=== PATIENT | female | born 1975 | race Caucasian/White ===

== ENCOUNTER 2018-12-17 15:23 | Emergency (ER) | payer OTHER ==
[~2018-12-17] VITALS: Ht 182.9 cm; Wt 86.4 kg
[2018-12-17 16:13] LABS: EOS % 0.1 % (1.0-5.0); HEMATOCRIT 39.1 % (37.0-47.0); LYMPH# 1.6 (1.50-4.00); MEAN CELL VOLUME 91 fl (78-100); MEAN CORPUSCULAR HEMOGLOBIN 30 pg (27-31); MEAN CORPUSCULAR HGB CONC 33 g/dL (33-37); MEAN PLATELET VOLUME 9.4 fl (7.4-10.4); MONO # 0.5 (0.20-0.80); NEU # 7.3 (1.40-6.50); PLATELET COUNT 305 K/mm3 (130-400); RED BLOOD COUNT 4.29 M/mm3 (4.10-5.30); RED CELL DISTRIBUTION WIDTH 12.5 % (11.5-14.5); WHITE BLOOD COUNT 9.5 K/mm3 (4.8-10.8)
[2018-12-17 16:18] LABS: ALBUMIN 4.6 g/dL (3.5-5.0)
[2018-12-17 16:19] LABS: CALCIUM 9.2 mg/dL (8.3-10.5)
[2018-12-17 16:20] LABS: TOTAL PROTEIN 8.2 g/dL (6.4-8.3)
[2018-12-17 16:22] LABS: TOTAL BILIRUBIN 0.5 mg/dL (0.2-1.2)
[2018-12-17] MEDS ORDERED: MECLIZINE PO (16:47)
[2018-12-17] MEDS ORDERED: ZOFRAN ODT4 MG PO (16:47)
[2018-12-17 17:07] VITALS: BP 112/61
== END 2018-12-17 17:03 | disposition home or self-care (01) ==
LOC: ED 15:23
PROVIDERS: Family Medicine
DX: R42 Dizziness and giddiness (principal)